=== PATIENT | male | born 1990 | race Caucasian/White ===

== ENCOUNTER 2016-11-13 03:57 | Emergency (ER) | payer OTHER ==
[2016-11-13 04:05] VITALS: TEMP 97.7
[2016-11-13] MEDS ORDERED: ONDANSETRON 4 MG/2 ML VIAL ONE (04:11)
[2016-11-13] MEDS ORDERED: ONDANSETRON 4 MG/2 ML VIAL IVP ONE (04:25)
[2016-11-13] MEDS ORDERED: NS 1,000 ML IV ONE (04:26)
[2016-11-13] MEDS ORDERED: FAMOTIDINE 20 MG/NACL 50 ML IV ONE (04:37)
--- NOTE | 2016-11-13 04:45 | EDPHY ---
H & P Stated Complaint: abd pain, n/v Time Seen by Provider: 11/13/16 04:23 HPI/ROS: HPI The patient presents with epigastric abdominal pain which began at about 9:30 p.m. 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 The pain got progressively worse throughout the course of the evening. It is sharp, does not radiate, is moderate in severity. He was able to eat foods shortly after the pain started and did drink a few beers. However the pain got worse throughout the course of the night. He began vomiting just prior to arrival, nonbloody nonbilious emesis. He denies any diarrhea. He has no prior history of similar symptoms.. REVIEW OF SYSTEMS Constitutional: No fever, no chills. Eyes: No discharge. ENT: No sore throat. Cardiovascular: No chest pain, no palpitations. Respiratory: No cough, no shortness of breath. Gastrointestinal: See HPI Genitourinary: No hematuria. Musculoskeletal: No back pain. Skin: No rashes. Neurological: No headache. PMHx: Healthy Soc Hx: Works as a cook, occasional alcohol PHYSICAL General Appearance: Alert, no distress Eyes: Pupils equal and round no pallor or injection ENT, Mouth: Mucous membranes moist Respiratory: There are no retractions, lungs are clear to auscultation Cardiovascular: Regular rate and rhythm Gastrointestinal: Abdomen is soft with mild epigastric tenderness, no masses, bowel sounds normal Neurological: A&O, moves all extremities Skin: Warm and dry, no rashes Musculoskeletal: Neck is supple non tender Extremities: symmetrical, full range of motion Psychiatric: Patient is oriented X 3, there is no agitation Source: Patient Exam Limitations: No limitations - Personal History Current Tetanus/Diphtheria Vaccine: Yes Current Tetanus Diphtheria and Acellular Pertussis (TDAP): Yes - Medical/Surgical History Hx Asthma: No Hx Chronic Respiratory Disease: No Hx Diabetes: No Hx Cardiac Disease: No Hx Renal Disease: No Hx Cirrhosis: No Hx Alcoholism: No Hx HIV/AIDS: No Hx Splenectomy or Spleen Trauma: No Other PMH: testicle removal age 6, - Social History Smoking Status: Current every day smoker Constitutional: Initial Vital Signs Temperature (C) 36.5 C 11/13/16 04:02 Heart Rate 52 L 11/13/16 04:02 Respiratory Rate 18 11/13/16 04:02 Blood Pressure 128/74 H 11/13/16 04:02 O2 Sat (%) 98 11/13/16 04:02 O2 Delivery Mode Room Air Allergies/Adverse Reactions: No Known Allergies Allergy (Unverified 11/13/16 04:01) Home Medications: Medication Instructions Recorded NK [No Known Home Meds] 11/13/16 Medical Decision Making Procedures: Bedside limited abdominal Ultrasound- performed and interpreted by me. Indication: Transaminitis Findings: No gallstones seen, no pericholecystic fluid, no sonographic 's Impression: No sonographic evidence of cholelithiasis or cholecystitis Differential Diagnosis: This is a 25-year-old healthy male who presents with epigastric abdominal pain, now associated with vomiting for the last 1 day. Differential diagnosis includes dyspepsia, gastritis, GERD, biliary colic, pancreatitis. The patient improved in the emergency room after receiving a L of normal saline , famotidine, GI cocktail. Labs were checked and did reveal a transaminitis with AST greater than ALT. This raises suspicion for alcoholic hepatitis. The patient does say he has been drinking heavily around the 04 of November holiday. I did consider biliary colic as the cause of his pain and I performed a right upper quadrant ultrasound which was unremarkable. His lipase was normal. I have encouraged him to stop drinking alcohol. He can take famotidine or Maalox as needed for his symptoms. He was able to tolerate fluids by mouth and was discharged from the emergency room. - Data Points Laboratory Results: Laboratory Results 11/13/16 04:17 11/13/16 04:17 11/13/16 11/13/16 04:17 04:17 WBC 13.22 10^3/uL H 10^3/uL (3.80-9.50) RBC 4.73 10^6/uL 10^6/uL (4.40-6.38) Hgb 15.6 g/dL g/dL (13.7-17.5) Hct 45.8 % % (40.0-51.0) MCV 96.8 fL fL (81.5-99.8) MCH 33.0 pg pg (27.9-34.1) MCHC 34.1 g/dL g/dL (32.4-36.7) RDW 12.9 % % (11.5-15.2) Plt Count 242 10^3/uL 10^3/uL (150-400) MPV 10.8 fL fL (8.7-11.7) Neut % (Auto) 80.9 % H % (39.3-74.2) Lymph % (Auto) 11.0 % L % (15.0-45.0) [place] % (Auto) 6.1 % % (4.5-13.0) Eos % (Auto) 1.2 % % (0.6-7.6) Baso % (Auto) 0.3 % % (0.3-1.7) Nucleat RBC Rel Count 0.0 % % (0.0-0.2) Absolute Neuts (auto) 10.70 10^3/uL H 10^3/uL (1.70-6.50) Absolute Lymphs (auto) 1.46 10^3/uL 10^3/uL (1.00-3.00) Absolute Monos (auto) 0.80 10^3/uL 10^3/uL (0.30-0.80) Absolute Eos (auto) 0.16 10^3/uL 10^3/uL (0.03-0.40) Absolute Basos (auto) 0.04 10^3/uL 10^3/uL (0.02-0.10) Absolute Nucleated RBC 0.00 10^3/uL 10^3/uL (0-0.01) Immature Gran % 0.5 % % (0.0-1.1) Immature Gran # 0.06 10^3/uL 10^3/uL (0.00-0.10) Sodium 142 mEq/L mEq/L (134-144) Potassium 4.3 mEq/L mEq/L (3.5-5.2) Chloride 107 mEq/L mEq/L (97-110) Carbon Dioxide 19 mEq/l L mEq/l (22-31) Anion Gap 16 mEq/L mEq/L (8-16) BUN 12 mg/dL mg/dL (7-23) Creatinine 0.9 mg/dL mg/dL (0.7-1.3) Estimated GFR > 60 Glucose 112 mg/dL H mg/dL (70-100) Calcium 9.9 mg/dL mg/dL (8.5-10.4) Total Bilirubin 0.9 mg/dL mg/dL (0.1-1.4) AST 230 IU/L H IU/L (17-59) ALT 124 IU/L H IU/L (21-72) Alkaline Phosphatase 98 IU/L IU/L (38-126) Total Protein 7.1 g/dL g/dL (6.3-8.2) Albumin 4.6 g/dL g/dL (3.5-5.0) Lipase 65.0 IU/L IU/L (23-300) Medications Given: Discontinued Medications Al Hydroxide/Mg Hydroxide (Maalox Susp) 30 ml PO EDNOW ONE Stop: 11/13/16 05:20 Last Admin: 11/13/16 05:24 Dose: 30 ml Sodium Chloride (Ns) 1,000 mls @ 3,000 mls/hr IV ONCE ONE Stop: 11/13/16 04:45 Last Admin: 11/13/16 04:27 Dose: 1,000 mls Famotidine/Sodium Chloride (Pepcid 20 Mg (Premix)) 50 mls @ 200 mls/hr IV EDNOW ONE Stop: 11/13/16 04:51 Last Admin: 11/13/16 04:43 Dose: 50 mls Lidocaine (Lidocaine 2% Viscous) 5 ml PO EDNOW ONE Stop: 11/13/16 05:21 Last Admin: 11/13/16 05:24 Dose: 5 ml Ondansetron HCl (Zofran) 4 mg IVP EDNOW ONE Stop: 11/13/16 04:26 Last Admin: 11/13/16 04:26 Dose: 4 mg Departure - Departure Disposition: Home, Routine, Self-Care Clinical Impression: Transaminitis Gastritis Qualifiers: Gastritis type: unspecified gastritis Chronicity: acute Gastritis bleeding: without bleeding Qualified Code(s): K29.00 - Acute gastritis without bleeding Condition: Good Instructions: Gastritis (ED), Diet for Stomach Ulcers and Gastritis (ED) Additional Instructions: Please avoid alcohol, he should return to the emergency room if your worse in any way.
[2016-11-13 04:51] LABS: % IMMATURE GRANULYOCYTES 0.5 % (0.0-1.1); ABSOLUTE IMMATURE GRANULOCYTES 0.06 10^3/uL (0.00-0.10); ADD DIFF? NO; ADD MORPH? NO; ADD SCAN? NO; ATYPICAL LYMPHOCYTE FLAG 10 (0-99); FRAGMENT RBC FLAG 0 (0-99); HEMATOCRIT 45.8 % (40.0-51.0); HEMOGLOBIN 15.6 g/dL (13.7-17.5); LEFT SHIFT FLG 10 (0-99); LIPEMIA HEMOLYSIS FLAG 90 (0-99); MEAN CELL HEMOGLOBIN CONCENTR. 34.1 g/dL (32.4-36.7); MEAN CELL VOLUME 96.8 fL (81.5-99.8); MEAN PLATELET VOLUME 10.8 fL (8.7-11.7); PLATELET CLUMPS FLAG 0 (0-99); PLATELET COUNT 242 10^3/uL (150-400); RED BLOOD CELL COUNT 4.73 10^6/uL (4.40-6.38); RED CELL DISTRIBUTION WIDTH 12.9 % (11.5-15.2)
[2016-11-13 04:54] LABS: ALANINE AMINOTRANSFERASE 124 IU/L (21-72); ALBUMIN 4.6 g/dL (3.5-5.0); ALKALINE PHOSPHATASE 98 IU/L (38-126); ANION GAP 16 mEq/L (8-16); ASPARTATE AMINOTRANSFERASE 230 IU/L (17-59); BILIRUBIN,TOTAL 0.9 mg/dL (0.1-1.4); CALCIUM 9.9 mg/dL (8.5-10.4); CARBON DIOXIDE 19 mEq/l (22-31); CHLORIDE 107 mEq/L (97-110); CREATININE 0.9 mg/dL (0.7-1.3); GLOMERULAR FILTRATION RATE > 60; GLUCOSE 112 mg/dL (70-100); POTASSIUM 4.3 mEq/L (3.5-5.2); SODIUM 142 mEq/L (134-144); TOTAL PROTEIN 7.1 g/dL (6.3-8.2)
[2016-11-13] MEDS ORDERED: MAG HYDROX/AL HYDROX/SIMETH 30 ML UDCUP PO ONE (05:19)
[2016-11-13] MEDS ORDERED: LIDOCAINE 2% VISCOUS 15 ML UDCUP PO ONE (05:20)
[2016-11-13 06:35] VITALS: BP 132/71; PULSE 60; RESP 16; O2SAT 97
== END 2016-11-13 06:20 | disposition home or self-care (01) ==
DX: K29.00 Acute gastritis without bleeding (principal); R74.0 Nonspecific elevation of levels of transaminase and lactic acid dehydrogenase [LDH]; F17.200 Nicotine dependence, unspecified, uncomplicated; R11.10 Vomiting, unspecified
CPT/HCPCS: 96365; J2405

== ENCOUNTER 2017-01-03 19:46 | Emergency (ER) | payer OTHER ==
--- NOTE | 2017-01-03 20:20 | EDPHY ---
H & P Stated Complaint: possible hernia, abd pain Time Seen by Provider: 01/03/17 20:19 - Personal History Current Tetanus/Diphtheria Vaccine: Yes Current Tetanus Diphtheria and Acellular Pertussis (TDAP): Yes - Medical/Surgical History Hx Asthma: No Hx Chronic Respiratory Disease: No Hx Diabetes: No Hx Cardiac Disease: No Hx Renal Disease: No Hx Cirrhosis: No Hx Alcoholism: No Hx HIV/AIDS: No Hx Splenectomy or Spleen Trauma: No Other PMH: testicle removal age 6, - Social History Smoking Status: Current every day smoker Constitutional: Initial Vital Signs Temperature (C) 36.8 C 01/03/17 19:55 Heart Rate 65 01/03/17 19:55 Respiratory Rate 18 01/03/17 19:55 Blood Pressure 142/73 H 01/03/17 19:55 O2 Sat (%) 97 01/03/17 19:55 O2 Delivery Mode Room Air Allergies/Adverse Reactions: No Known Allergies Allergy (Unverified 11/13/16 04:01) Home Medications: Medication Instructions Recorded Hydrocodone/APAP 5/325 [[place] 1 - 2 each PO Q4-6PRN PRN #20 tab 01/03/17 5/325] Medical Decision Making ED Course/Re-evaluation: CHIEF COMPLAINT: Right inguinal bulge HISTORY OF PRESENT ILLNESS: 26-year-old male who is noticed a worsening right inguinal balls over the last several weeks. 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 He has always been able to push the bulge back in but is getting more more painful when it sticks out more more bothersome. He wants to get diagnosed as he has never seen a physician for this problem and if needed he wants to get it repaired as he thinks he has a hernia. REVIEW OF SYSTEMS: A 10 point review of systems was performed and is negative with the exception of the elements mentioned in the history of present illness. PHYSICAL EXAM: HR, BP, O2 Sat, RR. Temp noted General Appearance: Alert, well hydrated, appropriate, and non-toxic appearing. Head: Atraumatic without scalp tenderness or obvious injury Eyes: Pupils equal, round, reactive to light and accommodation, EOMI, no trauma , no injection. Ears: Clear bilaterally, no perforation, normal landmarks Nose: Atraumatic, no rhinorrhea, clear. Throat: There is no erythema or exudates, no lesions, normal tonsils, mucus membranes moist. Neck: Supple, 2+ carotid upstroke, nontender, no lymphadenopathy. Respiratory: No retractions, no distress, no wheezes, and no accessory muscle use. Lungs are clear to auscultation bilaterally. Cardiovascular: Regular rate and rhythm, no murmurs, rubs, or gallops. Bilateral carotid, radial, dorsalis pedis, and posterior tibial pulses intact. Good capillary refill all extremities. Gastrointestinal: Right inguinal hernia which is easily reducible. Abdomen is soft, nontender, non-distended, no masses, no rebound, no guarding, no peritoneal signs. Musculoskeletal: Normal active ROM of all extremities, atraumatic. Neurological: Alert, appropriate, and interactive. The patient has normal DTRs and non-focal cranial nerves, motor, sensory, and cerebellar exam. Skin: No rashes, good turgor, no nodules on palpation. Past medical history: None Past surgical history: None Family history: Noncontributory Social history: Single, employed, does not abuse tobacco drugs or alcohol DIFFERENTIAL DIAGNOSIS: The differential diagnosis for the patient's abdominal pain included but was not limited to appendicitis, cholecystitis, hernias, testicular torsion, gastritis, and urinary tract infection. MEDICAL DECISION MAKING: This patient has a reducible right inguinal hernia. There is no evidence of incarceration or strangulation. I will give this patient a few pain pills. I have described very specifically how to reduce the hernia if it stuck out by elevating his feet and lying on the floor and gently pushing. In addition, warned the patient that if it does not reduce he should return to the emergency department immediately. Departure - Departure Disposition: Home, Routine, Self-Care Clinical Impression: Right inguinal hernia Condition: Good Instructions: Inguinal Hernia (ED) Referrals: UNKNOWN,PCP [Other] - As per Instructions Jeff Ledesma MD [Medical Doctor] - As per Instructions Prescriptions: Hydrocodone/APAP 5/325 [Palmer 5/325] 1 - 2 each PO Q4-6PRN PRN #20 tab PRN Reason: Pain, Moderate
[2017-01-03] MEDS ORDERED: HYDROCOD/APAP 5/325 PREPACK#6 BTL TAKEHOME ONE (20:36)
[2017-01-03 21:01] VITALS: BP 145/69; PULSE 56; RESP 16; TEMP 98.4; O2SAT 95
== END 2017-01-03 21:01 | disposition home or self-care (01) ==
DX: K40.90 Unilateral inguinal hernia, without obstruction or gangrene, not specified as recurrent (principal); F17.200 Nicotine dependence, unspecified, uncomplicated

== ENCOUNTER 2017-01-19 13:54 | Day surgery (SDC) | payer OTHER ==
[2017-01-19] MEDS ORDERED: ceFAZolin 2 GM/DEXTROSE 100 ML IV ONE (14:24)
[2017-01-19] MEDS ORDERED: LIDOCAINE 1% 2 ML INJ ID PRN (14:25)
[2017-01-19] MEDS ORDERED: LR 1,000 ML IV ONE (14:25)
--- NOTE | 2017-01-19 15:20 | PDHPUP ---
History & Physical Update H&P update statement: This history and physical update is based on an assessment of the patient which was completed after admission or registration (within 24 hours), but prior to the surgery/procedure. H&P update: H&P reviewed & patient examined, no change in patient's condition since H&P completed
[2017-01-19] MEDS ORDERED: MIDAZOLAM 2 MG/2 ML VIAL IVP ONE (15:33)
--- NOTE | 2017-01-19 15:33 | PDANEPAE ---
ANE History of Present Illness r inguinal hernia ANE Past Medical History - Pulmonary History Hx Oxygen in Use at Home: No Hx Sleep Apnea: No - Endocrine History Hx Diabetes: No ANE Review of Systems Review of Systems: ANE Patient History - Allergies Allergies/Adverse Reactions: No Known Allergies Allergy (Unverified 11/13/16 04:01) - NPO status NPO Since - Liquids (Date): 01/18/17 NPO Since - Liquids (Time): 23:30 NPO Since - Solids (Date): 01/18/17 NPO Since - Solids (Time): 23:30 - Smoking Hx Smoking Status: Current every day smoker ANE Labs/Vital Signs - Vital Signs Blood Pressure: 148/78 Heart Rate: 54 Respiratory Rate: 16 O2 Sat (%): 97 Height: 180.34 cm Weight: 77.111 kg ANE Physical Exam - Airway Neck exam: FROM Mallampati Score: Class 2 Mouth exam: normal dental/mouth exam - Pulmonary Pulmonary: no respiratory distress - Cardiovascular Cardiovascular: regular rate and rhythym - ASA Status ASA Status: II ANE Anesthesia Plan Anesthesia Plan: general endotracheal anesthesia
[2017-01-19] MEDS ORDERED: LIDOCAINE 2% 5 ML SDV ONE (15:36)
[2017-01-19] MEDS ORDERED: ROCURONIUM 50 MG/5 ML VIAL ONE (15:36)
[2017-01-19] MEDS ORDERED: DEXAMETHASONE 4 MG/ML VIAL ONE (15:36)
[2017-01-19] MEDS ORDERED: ONDANSETRON 4 MG/2 ML VIAL ONE (15:36)
[2017-01-19] MEDS ORDERED: PROPOFOL 200 MG/20 ML VIAL ONE ×2 (15:37→17:17)
[2017-01-19] MEDS ORDERED: fentaNYL 100 MCG/2 ML INJ ONE ×4 (15:37→17:14)
[2017-01-19] MEDS ORDERED: BUPIVACAINE 0.5% 30 ML SDV ONE (15:40)
[2017-01-19] MEDS ORDERED: NALOXONE HCL 0.4 MG/ML INJ IVP PRN (16:33)
[2017-01-19] MEDS ORDERED: fentaNYL 100 MCG/2 ML INJ IVP PRN (16:33)
[2017-01-19] MEDS ORDERED: PROMETHAZINE HCL 25 MG/ML INJ IVP PRN (16:33)
[2017-01-19] MEDS ORDERED: ONDANSETRON 4 MG/2 ML VIAL IVP PRN (16:33)
[2017-01-19] MEDS ORDERED: HYDROCODONE/APAP 5/325 TAB PO PRN (16:33)
[2017-01-19] MEDS ORDERED: HYDROmorphONE/DILAUDID 2 MG/ML INJ ONE (16:41)
[2017-01-19] MEDS ORDERED: HYDROmorphONE/DILAUDID 1 MG/ML INJ ONE (18:12)
--- NOTE | 2017-01-19 18:14 | POSTANESTH ---
Post Anesthetic Evaluation Cardiovascular Status: Tx Hyper/Hypo-tension Respiratory Status: Normal, Stable Level of Consciousness/Mental Status: Can Participate in Eval Pain Control: Inadeq, Add Tx Required Nausea/Vomiting Control: Adequate, Prn Tx Ordered Complications Possibly Related to Anesthesia: None Noted
[2017-01-19] MEDS: HYDROmorphONE/DILAUDID 1 MG/ML INJ IVP PRN ×3 (18:17→19:21)
--- NOTE | 2017-01-19 18:25 | POSTOPPROG ---
Post Op Note Date of Operation: 01/19/17 Surgeon: David Garcia A And P Mechanic: JUSTUS Espino Anesthesiologist: Sujit Anesthesia: GET(General Endotracheal) Pre-op Diagnosis: R inguinal hernia Post-op Diagnosis: same Procedure: Robotic assisted RIH c mesh Findings: large indirect sac. Inf/Abcess present in the surg proc area at time of surgery?: No EBL: Minimal
[2017-01-19] MEDS ORDERED: HYDROCODONE/APAP 5/325 TAB ONE (19:23)
[2017-01-19 20:39] VITALS: BP 176/95; O2SAT 95
[2017-01-19 21:03] VITALS: TEMP 97.9
[2017-01-19 21:06] VITALS: RESP 20
[2017-01-19 21:12] VITALS: PULSE 83
--- NOTE | 2017-01-20 09:21 | GOP ---
[f rep st] OPERATIVE REPORT DATE OF OPERATION: 01/19/2017 SURGEON: David Garcia MD HAIR BOILER: KY Mccann. ANESTHESIA: General endotracheal provided by Dr. Beckett. PREOPERATIVE DIAGNOSIS: Right inguinal hernia. POSTOPERATIVE DIAGNOSIS: Right inguinal hernia. PROCEDURE PERFORMED: Robotic assisted laparoscopic transabdominal preperitoneal inguinal hernia repair with mesh. FINDINGS: Large indirect hernia sac going into the scrotum, successfully reduced. Defect repaired with Bard 3D Light large mesh. SPECIMENS: None. ESTIMATED BLOOD LOSS: 5 cc DESCRIPTION OF PROCEDURE: The patient was greeted in the preop suite. Once again, risks, benefits, and alternatives were discussed. Consent was signed. He was then brought back to the operative suite, placed on the OR table in supine position. After all anesthesia machines, including SCDs, were on and functioning, World Health Organization time-out was performed. After successful induction of general anesthesia, the patient's abdomen was widely prepped and draped in typical sterile fashion. I entered the abdomen using the Veress needle just superior to the umbilicus. I achieved pneumoperitoneum to 15 mmHg which was well tolerated by the patient. Through this, I inserted a 5 mm trocar using the Visiport technique. Once successfully in the abdomen, I placed two additional 8 mm trocars, one in the right upper and one in the left upper quadrant, both under direct visualization and upsized my midline port to an 8 as well. I then successfully docked the robot. Once in the abdomen, I entered the preperitoneal space just superior to the anterior superior iliac spine and carried this out of the way down to the median umbilical ligament. I then dissected out the preperitoneal space to Bharat ligament medially and the anterior superior iliac spine laterally. The patient had a large indirect sac which was adherent to the cord structures. Using a combination of gentle dissection and scissor dissection, I successfully freed the adherent sac from the cord structures and successfully reduced it all the way down to the visceral sac. After reduction, I inspected to cord structures to ensure that they were intact. Once this was reduced, I then inspected the femoral and direct spaces and identified no additional hernias. I brought a piece of Bard 3D Light large mesh into the area, secured it to Bharat ligament with interrupted 3-0 Vicryl suture. In the same fashion I secured it on either side of the inferior epigastric vessels. Once the mesh was lying in the appropriate space, I then closed the peritoneal using a running 3-0 V-Loc suture incorporating the hernia sac into the closure. After this was done, I desufflated, I closed the port sites using interrupted 4-0 Monocryl stitches over which Dermabond was placed. The patient was then extubated in the operative suite and taken to the PACU in satisfactory condition. DRAINS: None. COUNTS: All counts were reported as correct x2. /[id number]/MODL MTDD
== END 2017-01-19 20:45 | disposition home or self-care (01) ==
LOC: FSGY 13:54
PROVIDERS: ATTEND Surgery
PROC: 0YU54JZ Supplement Right Inguinal Region with Synthetic Substitute, Percutaneous Endoscopic Approach (ICD-10-PCS; principal; 2017-01-19 16:45)
DX: K40.90 Unilateral inguinal hernia, without obstruction or gangrene, not specified as recurrent (principal); Z72.0 Tobacco use
CPT/HCPCS: C1781; J0690; J1100; J1170; J2250; J2405; J2704; J3010

== ENCOUNTER 2017-01-22 18:51 | Emergency (ER) | payer OTHER ==
--- NOTE | 2017-01-22 19:49 | EDPHY ---
H & P Stated Complaint: ABD pain post surgery 01/19 Time Seen by Provider: 01/22/17 19:29 HPI/ROS: CHIEF COMPLAINT: Abdominal pain, right sided chest/shoulder pain HISTORY OF PRESENT ILLNESS: 26-year-old male presents to the emergency department complaining of diffuse abdominal pain and right-sided chest/shoulder pain, crampy in nature. Patient had an inguinal hernia repair that was significant [address] David Romano. Pt woke up the next day with right sided sharp chest/shoulder pain that is worse with a deep breath. Pt reports this chest pain has improved slightly over the past few days though continues. Pt reports diffuse abdominal bloating and aching. He took his last norco today. No nausea or vomiting. Pt reports chills, no fevers that he has noticed. Patient reports feeling constipated, small soft bowel movement today. REVIEW OF SYSTEMS: A comprehensive 10 point review of systems is otherwise negative aside from elements mentioned in the history of present illness. Source: Patient Exam Limitations: No limitations - Personal History Current Tetanus/Diphtheria Vaccine: Yes Current Tetanus Diphtheria and Acellular Pertussis (TDAP): Yes - Medical/Surgical History Hx Asthma: No Hx Chronic Respiratory Disease: No Hx Diabetes: No Hx Cardiac Disease: No Hx Renal Disease: No Hx Cirrhosis: No Hx Alcoholism: No Hx HIV/AIDS: No Hx Splenectomy or Spleen Trauma: No Other PMH: testicle removal age 6, - Social History Smoking Status: Current every day smoker - Physical Exam Exam: Physical Exam Gen: Alert and Oriented, NAD HEENT: PERRL, moist mucous membranes NECK: no meningismus CV: regular rate and regular rhythm PULM: CTAB, no wheezes ABDOMEN: soft, mild bloating, diffuse tenderness to palpation BACK: No CVA tenderness NEURO: Neurologically grossly intact EXTREMITIES: normal appearing SKIN:surgical incisions with no drainage, no surrounding erythema PSYCH: answers questions appropriately. Constitutional: Initial Vital Signs Temperature (C) 36.8 C 01/22/17 19:37 Heart Rate 73 01/22/17 19:37 Respiratory Rate 18 01/22/17 19:37 Blood Pressure 167/90 H 01/22/17 19:37 O2 Sat (%) 96 01/22/17 19:37 O2 Delivery Mode Room Air Allergies/Adverse Reactions: No Known Allergies Allergy (Unverified 11/13/16 04:01) Home Medications: Medication Instructions Recorded Hydrocodone/APAP 5/325 [[place] 1 - 2 each PO Q4-6PRN PRN #20 tab 01/03/17 5/325] Hydrocodone/APAP 5/325 [[place] 1 tab PO Q4H PRN #14 tab 01/22/17 5/325] Medical Decision Making - Diagnostics Imaging Results: Imaging Impressions Abdomen X-Ray 01/22/17 20:12 Impression: Nonspecific bowel gas pattern, with mild pneumoperitoneum (seen to better advantage on subsequent CT imaging of the chest which included the upper abdomen). Chest/Thorax CTA 01/22/17 21:44 Impression: 1. There is no CT evidence of pulmonary artery thromboemboli. 2. Mild pneumoperitoneum and pneumomediastinum. Findings were discussed with Lui Pearson M.D. at 22:50, on 01/22/2017. Imaging: Discussed imaging studies w/ private branch exchange operator Radiologist ED Course/Re-evaluation: IV established, CBC, chemistry panel, EKG obtained, upright abdomen x-ray obtained. Dr. Hurley was consulted and saw the patient. Abdomen soft. WBC mildly elevated. Pt is afebrile and non toxic appearing. CT angio chest ordered to rule out PE due to the patients post op chest pain. My supervising physician Dr. Luna saw and evaluated this patient as well. CT angio chest shows no evidence of pulmonary embolism though shows a is mild pneumomediastinum and mild pneumoperitoneum. Oxygen saturations are 95% on room air, I spoke with Dr. Garcia about these results. He is comfortable with discharge home. Patient will follow up with his surgeon early next week, he is to return to the emergency department for shortness of breath, worsening symptoms, new symptoms or concerns. Differential Diagnosis: Diagnosis considered but not limited to peritonitis, postop infection, pulmonary embolism, constipation. - Data Points Laboratory Results: Laboratory Results 01/22/17 19:31 01/22/17 19:31 01/22/17 01/22/17 19:31 19:31 WBC 10.19 10^3/uL H 10^3/uL (3.80-9.50) RBC 4.58 10^6/uL 10^6/uL (4.40-6.38) Hgb 14.8 g/dL g/dL (13.7-17.5) Hct 42.9 % % (40.0-51.0) MCV 93.7 fL fL (81.5-99.8) MCH 32.3 pg pg (27.9-34.1) MCHC 34.5 g/dL g/dL (32.4-36.7) RDW 12.2 % % (11.5-15.2) Plt Count 252 10^3/uL 10^3/uL (150-400) MPV 11.3 fL fL (8.7-11.7) Neut % (Auto) 68.2 % % (39.3-74.2) Lymph % (Auto) 18.7 % % (15.0-45.0) [place] % (Auto) 9.0 % % (4.5-13.0) Eos % (Auto) 3.1 % % (0.6-7.6) Baso % (Auto) 0.6 % % (0.3-1.7) Nucleat RBC Rel Count 0.0 % % (0.0-0.2) Absolute Neuts (auto) 6.94 10^3/uL H 10^3/uL (1.70-6.50) Absolute Lymphs (auto) 1.91 10^3/uL 10^3/uL (1.00-3.00) Absolute Monos (auto) 0.92 10^3/uL H 10^3/uL (0.30-0.80) Absolute Eos (auto) 0.32 10^3/uL 10^3/uL (0.03-0.40) Absolute Basos (auto) 0.06 10^3/uL 10^3/uL (0.02-0.10) Absolute Nucleated RBC 0.00 10^3/uL 10^3/uL (0-0.01) Immature Gran % 0.4 % % (0.0-1.1) Immature Gran # 0.04 10^3/uL 10^3/uL (0.00-0.10) Sodium 140 mEq/L mEq/L (134-144) Potassium 4.0 mEq/L mEq/L (3.5-5.2) Chloride 102 mEq/L mEq/L (97-110) Carbon Dioxide 23 mEq/l mEq/l (22-31) Anion Gap 15 mEq/L mEq/L (8-16) BUN 17 mg/dL mg/dL (7-23) Creatinine 1.0 mg/dL mg/dL (0.7-1.3) Estimated GFR > 60 Glucose 63 mg/dL L mg/dL (70-100) Calcium 10.3 mg/dL mg/dL (8.5-10.4) Medications Given: Discontinued Medications Hydromorphone HCl (Dilaudid) 0.5 mg IVP EDNOW ONE Stop: 01/22/17 20:17 Last Admin: 01/22/17 20:26 Dose: 0.5 mg Ondansetron HCl (Zofran) 4 mg IVP EDNOW ONE Stop: 01/22/17 20:17 Last Admin: 01/22/17 20:25 Dose: 4 mg Polyethylene Glycol (Miralax) 17 gm PO EDNOW ONE Stop: 01/22/17 22:34 Last Admin: 01/22/17 23:00 Dose: 17 gm Departure - Departure Disposition: Home, Routine, Self-Care Clinical Impression: Post-operative pain, Pneumomediastinum, Pneumoperitoneum Condition: Good Instructions: Hydrocodone/Acetaminophen (By mouth), Acute Abdominal Pain (ED) Additional Instructions: Take miralax daily. Take 600mg of ibuprofen every 8 hours with food for 3-5 days. Take 1 norco every 6 hours as needed for severe pain. Call tomorrow to schedule an appointment to be seen by your surgeon early next week. Return to the ED for worsening symptoms, shortness of breath, new symptoms or concerns. Referrals: David Garcia MD [Medical Doctor] - As per Instructions Prescriptions: Hydrocodone/APAP 5/325 [[place] 5/325] 1 tab PO Q4H PRN #14 tab PRN Reason: Pain, Moderate
[2017-01-22 20:15] LABS: % IMMATURE GRANULYOCYTES 0.4 % (0.0-1.1); ABSOLUTE IMMATURE GRANULOCYTES 0.04 10^3/uL (0.00-0.10); ADD DIFF? NO; ADD MORPH? NO; ADD SCAN? NO; ATYPICAL LYMPHOCYTE FLAG 0 (0-99); FRAGMENT RBC FLAG 0 (0-99); HEMATOCRIT 42.9 % (40.0-51.0); HEMOGLOBIN 14.8 g/dL (13.7-17.5); LEFT SHIFT FLG 0 (0-99); LIPEMIA HEMOLYSIS FLAG 90 (0-99); MEAN CELL HEMOGLOBIN 32.3 pg (27.9-34.1); MEAN CELL HEMOGLOBIN CONCENTR. 34.5 g/dL (32.4-36.7); MEAN CELL VOLUME 93.7 fL (81.5-99.8); MEAN PLATELET VOLUME 11.3 fL (8.7-11.7); PLATELET CLUMPS FLAG 0 (0-99); PLATELET COUNT 252 10^3/uL (150-400); RED BLOOD CELL COUNT 4.58 10^6/uL (4.40-6.38); RED CELL DISTRIBUTION WIDTH 12.2 % (11.5-15.2)
[2017-01-22] MEDS ORDERED: ONDANSETRON 4 MG/2 ML VIAL IVP ONE (20:16)
[2017-01-22] MEDS ORDERED: HYDROmorphONE/DILAUDID 1 MG/ML INJ IVP ONE (20:16)
[2017-01-22 20:24] LABS: ANION GAP 15 mEq/L (8-16); CALCIUM 10.3 mg/dL (8.5-10.4); CARBON DIOXIDE 23 mEq/l (22-31); CHLORIDE 102 mEq/L (97-110); GLOMERULAR FILTRATION RATE > 60; GLUCOSE 63 mg/dL (70-100); SODIUM 140 mEq/L (134-144)
[2017-01-22 20:32] VITALS: RESP 16
--- NOTE | 2017-01-22 21:11 | CPEKG ---
Heart Rate: 69 RR Interval: 870 P-R Interval: 176 QRSD Interval: 96 QT Interval: 412 QTC Interval: 442 P [place]: 49 QRS [place]: 60 T Wave [place]: 50 EKG Severity - ABNORMAL ECG - EKG Impression: SINUS RHYTHM EKG Impression: PROBABLE LEFT VENTRICULAR HYPERTROPHY Electronically Signed By: Arnav Luna 22-Jan-2017 21:45:16
[2017-01-22] MEDS ORDERED: IOPAMIDOL (ISOVUE 370) 100 ML BTL IV ONE (21:49)
[2017-01-22] MEDS ORDERED: POLYETHYLENE GLYCOL 3350 17 GM PKT PO ONE (22:33)
[2017-01-22] MEDS ORDERED: HYDROCOD/APAP 5/325 PREPACK#6 BTL TAKEHOME ONE (23:10)
[2017-01-23 06:47] VITALS: BP 132/71; PULSE 66; TEMP 98.6; O2SAT 95
--- NOTE | 2017-01-23 13:42 | GCON ---
[f rep st] CONSULTATION DATE OF CONSULTATION: 01/22/2017 CHIEF COMPLAINT: Abdominal and chest pain. HISTORY OF PRESENT ILLNESS: This is a 26-year-old male, who presents to the Emergency Department wit h a 36-hour history of abdominal and chest pain. He is well known to me, as he recently underwent ro botic assisted laparoscopic hernia repair on Thursday afternoon. The patient underwent an uneventful o peration, was subsequently discharged home on an outpatient basis. He states that ever since the he has had some abdominal pain, which he describes as somewhat diffuse. He has had a little bit of chest pain over the last 24-48 hours, which is new and had not regressed, so he decided to presen t here. He continues to tolerate a regular diet without any nausea, vomiting. He denies fevers and chills. He does state that he finished his entire course of 30 [place] over the last 72 hours, and ajay t he has not had a bowel movement other than some small smears this morning. He presents with pain. Other than that, he really has no complaints. PAST MEDICAL HISTORY: None. PAST SURGICAL HISTORY: Robotic hernia repair performed Thursday. FAMILY HISTORY: Noncontributory. SOCIAL HISTORY: Social marijuana and alcohol use. REVIEW OF SYSTEMS: A full 10-point review was performed and unless stated above, is otherwise negati ve. PHYSCIAL EXAM: VITAL SIGNS: Temperature 36.8 blood pressure 160/90, heart rate 73, and he is 96% on room air. CONSTITUTIONAL: He is not in distress, and he appears comfortable. EYES: His pupils ar e equal, round, reactive with anicteric sclerae. EARS, NOSE, MOUTH AND THROAT: Moist mucous membran es. Normal hearing CV: He has a regular rate and rhythm. He is hypertensive. RESPIRATORY: He has no crepitus, and his breath sounds are equal bilaterally. ABDOMEN: Soft, nondistended, minimally t alfonzo. His port sites are clean, dry and intact. I appreciate no recurrent hernia. SKIN: Warm, no n-mottled. MUSCULOSKELETAL: Normal strength. Normal range of motion. NEUROLOGIC: He is alert and oriented x3 with cranial nerves 2-12 intact. PSYCH: He is interacting appropriately. LYMPH: He h as no palpable or appreciable lymphadenopathy. LABS: White count essentially normal at 10. Chemistry is unremarkable. IMAGING: Includes a flat plate of his abdomen, which was personally reviewed by me, and shows nonspe cific bowel gas pattern with minimal pneumoperitoneum. CT scan of his chest shows some pneumomediast inum with minimal again pneumoperitoneum. No PE. ASSESSMENT AND PLAN: A 26-year-old male, status post laparoscopic hernia repair with chest and belly pain. I did reassure the patient that his findings of pneumomediastinum and residual pneumoperitone um are expected less than 3 days out from surgery, and that I am under-whelmed by these findings. I told him that they will more than likely resolve over the next few days. He has no concerning findin gs on his abdominal exam, laboratory enzymes or CT scan. I told him that he should follow up with me next week for a physical exam. I did tell him that he needs to take a stool softener with all the n arcotics that he is taking, as the constipation is likely contributing to his symptoms. He understoo d this. He felt reassured. He will follow up with me next week for a routine postoperative visit. /[id number]/MODL
== END 2017-01-22 23:27 | disposition home or self-care (01) ==
DX: G89.18 Other acute postprocedural pain (principal); J98.2 Interstitial emphysema; K66.8 Other specified disorders of peritoneum; F17.200 Nicotine dependence, unspecified, uncomplicated; R10.9 Unspecified abdominal pain
CPT/HCPCS: 96374; J1170; J2405; Q9967

== ENCOUNTER 2018-04-12 23:18 | Emergency (ER) | payer BC, OTHER ==
[2018-04-12] MEDS ORDERED: NS 1,000 ML IV ONE (23:29)
[2018-04-12 23:43] LABS: PLATELET COUNT 273 10^3/uL (150-400)
--- NOTE | 2018-04-13 01:06 | EDPHY ---
H & P Time Seen by Provider: 04/12/18 23:22 HPI/ROS: Chief Complaint: Altered mental status HPI: 27-year-old male found sleeping in his car. No obvious damage to the vehicle or size of significant impact. Upon waking the patient became aggressive and combative. Smells strongly of alcohol. Required 4 point restraints. No obvious signs of trauma per EMS. Unable to provide any further history. ROS: Unavailable secondary to the patient's altered mental status PMH: Unknown Social History: Unknown Family History: Unknown Physical Exam: Gen: Sleeping, open eyes, tracks, nonverbal, smells of alcohol HEENT: Nose: no rhinorrhea Eyes: PERRLA, EOMI Mouth: Moist mucosa Neck: Supple, no JVD Chest: nontender, lungs clear to auscultation Heart: S1, S2 normal, no murmur Abd: Soft, non-tender, no guarding Back: no CVA tenderness, no midline tenderness Ext: no edema, non-tender Skin: no rash Neuro: CN II-XII intact, Sensation grossly intact, Strength 5/5 in bilateral upper and lower extremities - Personal History Current Tetanus Diphtheria and Acellular Pertussis (TDAP): Unsure - Medical/Surgical History Hx Asthma: No Hx Chronic Respiratory Disease: No Hx Diabetes: No Hx Cardiac Disease: No Hx Renal Disease: No Hx Cirrhosis: No Hx Alcoholism: No Hx HIV/AIDS: No Hx Splenectomy or Spleen Trauma: No Other PMH: testicle removal age 6, - Social History Smoking Status: Current every day smoker Constitutional: Initial Vital Signs Temperature (C) 36.4 C 04/12/18 23:18 Heart Rate 96 04/12/18 23:18 Respiratory Rate 20 04/12/18 23:18 Blood Pressure 156/91 H 04/12/18 23:18 O2 Sat (%) 95 04/12/18 23:18 O2 Delivery Mode Room Air Allergies/Adverse Reactions: No Known Allergies Allergy (Unverified 11/13/16 04:01) Home Medications: Medication Instructions Recorded Hydrocodone/APAP 5/325 [[place] 1 - 2 each PO Q4-6PRN PRN #20 tab 01/03/17 5/325] Hydrocodone/APAP 5/325 [[place] 1 tab PO Q4H PRN #14 tab 01/22/17 5/325] Medical Decision Making ED Course/Re-evaluation: 27-year-old male found sleeping in his car, patient smells of alcohol. Will check tox screen and alcohol level and reassess. Patient's alcohol level noted. Patient is now awake Alert. He admits to drinking alcohol tonight. Denies any other drug use. He is ambulating unassisted. He is currently without complaint. He denies any pain. No past medical history. No meds, no allergies. Patient is medically cleared for the [facility]. - Data Points Laboratory Results: Laboratory Results 04/12/18 23:25 04/12/18 23:25 04/13/18 04/12/18 04/12/18 00:30 23:25 23:25 WBC 8.85 10^3/uL 10^3/uL (3.80-9.50) RBC 5.18 10^6/uL 10^6/uL (4.40-6.38) Hgb 16.2 g/dL g/dL (13.7-17.5) Hct 47.1 % % (40.0-51.0) MCV 90.9 fL fL (81.5-99.8) MCH 31.3 pg pg (27.9-34.1) MCHC 34.4 g/dL g/dL (32.4-36.7) RDW 12.6 % % (11.5-15.2) Plt Count 273 10^3/uL 10^3/uL (150-400) MPV 10.5 fL fL (8.7-11.7) Neut % (Auto) 62.4 % % (39.3-74.2) Lymph % (Auto) 26.6 % % (15.0-45.0) [place] % (Auto) 7.5 % % (4.5-13.0) Eos % (Auto) 2.7 % % (0.6-7.6) Baso % (Auto) 0.3 % % (0.3-1.7) Nucleat RBC Rel Count 0.0 % % (0.0-0.2) Absolute Neuts (auto) 5.53 10^3/uL 10^3/uL (1.70-6.50) Absolute Lymphs (auto) 2.35 10^3/uL 10^3/uL (1.00-3.00) Absolute Monos (auto) 0.66 10^3/uL 10^3/uL (0.30-0.80) Absolute Eos (auto) 0.24 10^3/uL 10^3/uL (0.03-0.40) Absolute Basos (auto) 0.03 10^3/uL 10^3/uL (0.02-0.10) Absolute Nucleated RBC 0.00 10^3/uL 10^3/uL (0-0.01) Immature Gran % 0.5 % % (0.0-1.1) Immature Gran # 0.04 10^3/uL 10^3/uL (0.00-0.10) Sodium 138 mEq/L mEq/L (135-145) Potassium 4.2 mEq/L mEq/L (3.5-5.2) Chloride 105 mEq/L mEq/L (97-110) Carbon Dioxide 17 mEq/l L mEq/l (22-31) Anion Gap 16 mEq/L H mEq/L (6-14) BUN 10 mg/dL mg/dL (7-23) Creatinine 0.9 mg/dL mg/dL (0.7-1.3) Estimated GFR > 60 Glucose 89 mg/dL mg/dL (70-100) Calcium 9.8 mg/dL mg/dL (8.5-10.4) Urine Opiates Screen NEGATIVE (NEGATIVE) Urine Barbiturates NEGATIVE (NEGATIVE) Ur Phencyclidine Scrn NEGATIVE (NEGATIVE) Ur Amphetamine Screen NEGATIVE (NEGATIVE) U Benzodiazepines Scrn NEGATIVE (NEGATIVE) Urine Cocaine Screen NEGATIVE (NEGATIVE) U Marijuana (THC) Screen NON-NEGATIVE H (NEGATIVE) Ethyl Alcohol 340 mg/dL H mg/dL (0-10) Medications Given: Discontinued Medications Sodium Chloride (Ns) 1,000 mls @ 0 mls/hr IV ONCE ONE; Wide Open PRN Reason: Protocol Stop: 04/12/18 23:30 Last Admin: 04/12/18 23:36 Dose: 1,000 mls Departure - Departure Disposition: Home, Routine, Self-Care Clinical Impression: Alcoholic intoxication Condition: Good Instructions: Alcohol Intoxication (ED) Referrals: Patient,NotPresent [Primary Care Provider] - As per Instructions
[2018-04-13 01:12] VITALS: BP 148/89
== END 2018-04-13 01:12 | disposition home or self-care (01) ==
LOC: EDUNIT#
DX: F10.920 Alcohol use, unspecified with intoxication, uncomplicated (principal); E86.9 Volume depletion, unspecified
CPT/HCPCS: 80305; G0480